=== PATIENT | female | born 1980 | race Caucasian/White ===

== ENCOUNTER 2017-08-30 18:54 | Emergency (ER) | payer OTHER ==
[~2017-08-30] VITALS: Ht 154.9 cm; Wt 74.8 kg
[2017-08-30] MEDS ORDERED: LEVSOD75 PO (19:51)
[2017-08-30] MEDS ORDERED: METCAR500 PO (19:51)
[2017-08-30] MEDS ORDERED: SERT100 PO (19:51)
[2017-08-30] MEDS ORDERED: ESTR2 PO (19:51)
[2017-08-30] MEDS ORDERED: TRAM50 PO (19:52)
[2017-08-30] MEDS ORDERED: CLON1 PO (19:52)
[2017-08-30] MEDS ORDERED: TRAZ50 PO (19:53)
[2017-08-30] MEDS ORDERED: BENZ100A PO (20:35)
[2017-08-30] MEDS ORDERED: ALBU90OI INH (20:35)
== END 2017-08-30 20:40 | disposition home or self-care (01) ==
LOC: ER 18:54
DX: J40 Bronchitis, not specified as acute or chronic (principal); Z88.0 Allergy status to penicillin; Z88.1 Allergy status to other antibiotic agents; Z79.899 Other long term (current) drug therapy; Z79.891 Long term (current) use of opiate analgesic; F17.200 Nicotine dependence, unspecified, uncomplicated
CPT/HCPCS: 99283